=== PATIENT | male | born 1990 | race Caucasian/White ===

== ENCOUNTER → 2020-03-20 10:13 | Outpatient (CLI) | payer BC, SELFPAY | PROVIDERS: PCP Family Medicine; Referring Provider Otolaryngology Otolaryngology/Facial Plastic Surgery; Visit Provider Otolaryngology Otolaryngology/Facial Plastic Surgery | DX: Z11.59 Encounter for screening for other viral diseases (principal) | CPT/HCPCS: 87635; C9803; U0003 ==

== ENCOUNTER 2020-11-16 07:27 | Emergency (ER) | payer OTHER, SELFPAY ==
[2020-11-16 07:29] VITALS: BP 146/81; PULSE 78; RESP 20; TEMP 36.8; O2SAT 94; BMI 39.7
--- NOTE | 2020-11-16 07:38 | EKG12_ITS ---
Test Reason : CP Blood Pressure : / mmHG Vent. Rate : 081 BPM Atrial Rate : 081 BPM P-R Int : 158 ms QRS Dur : 088 ms QT Int : 340 ms P-R-T Axes : 039 014 024 degrees QTc Int : 394 ms Normal sinus rhythm Normal ECG Confirmed by CRISTOBAL POOL, ROSE ([id number]), television news video editor LLOYD MORALES ([id number]) on 11/19/2020 9:39:29 AM Referred By: ED PHYSICIAN Confirmed By:ROSE JAIN MD
--- NOTE | 2020-11-16 07:39 | EDS_ITS ---
HPI History of Present Illness Chief Complaint: Chest Pain Informant: patient Narrative Narrative: Patient is a 30-year-old previously healthy male who presents to the emergency department for left lower chest pain. He states that this started last night. Does not recall any inciting event. Has been progressively getting worse. He currently rates as a 7 out of 10. He states getting in and out of his car seems to make it worse. Whenever the pain gets severe it does seem to take his breath away but he denies shortness of breath at rest. Deep breaths do not seem to aggravate it. He has not tried taking anything for it. He denies any recent illness including any cough, cold, congestion. No fevers or chills. No leg swelling or calf pain. No recent prolonged periods of immobilization. No family history of cardiac disease especially at a young age. He denies any personal history of CAD or thromboembolism. He is a non-smoker. [facility] Home Medications NK 11/16/20 [History Last Taken Unknown] Allergy/AdvReac Type Severity Reaction Status Date / Time No Known Allergies Allergy Verified 11/16/20 07:28 Social History Smoking Status: Never smoker ROS ROS ED Constitutional Constitutional ED: Denies chills or fever(s) Eyes Eyes: Denies change in vision ENT ENT ED: Denies epistaxis or rhinorrhea Cardiovascular Cardiovascular: Reports chest pain; Denies palpitations Respiratory/Chest Respiratory/Chest: Denies cough, dyspnea or dyspnea on exertion Gastrointestinal Gastrointestinal: Denies abdominal pain, nausea or vomiting Musculoskeletal Musculoskeletal: Denies back pain or neck pain Integumentary Denies rash Neurologic Neurologic: Denies dizziness, headache(s) or weakness EXAM Physical Exam Const Vital Signs: 11/16/20 07:29 11/16/20 07:31 11/16/20 08:47 Temperature 98.2 F Temperature Source Oral Pulse Rate 78 71 Respiratory Rate 20 H 16 Respiratory Effort Normal Non-Labored Blood Pressure 146/81 H 128/78 H Blood Pressure Mean 102 Pulse Ox 94 98 Oxygen Delivery Method Room Air Positive well nourished and well developed General Appearance ED: well developed and NAD HEENT Reports normocephalic, head/scalp atraumatic and moist mucous membranes Eyes PERRL and EOMs intact bilaterally Neck supple Chest Wall inspection of chest normal Resp normal respiratory effort and clear to auscultation bilaterally Auscultation: Negative for rales, rhonchi or wheezes Cardio regular rate, regular rhythm and no murmurs GI normal to inspection, nondistended, normoactive bowel sounds and non-tender Palpation: soft; Negative for guarding or rebound tenderness present Extremity normal to inspection General Extremety ED: Negative for edema or tenderness General Extremity: Negative for edema Neuro no sensory deficits noted Sensorium / Orientation: alert Motor Exam: strength 5/5 throughout Psych mental status grossly normal Skin no rashes or lesions noted Heart Score History: Slightly/Non-Suspicious ECG: Normal Age: </= 45 years Risk Factors: 1 or 2 Risk Factors Troponin: </= Normal Limit Score: 1 MDM MDM MDM Narrative Medical decision making narrative: Patient presents to the ED for left-sided chest pain. Upon arrival to the emergency department he is in no acute distress. His initial O2 saturation is 94% but on my examination was at 98% on room air with no increased work of breathing. He does have some reproduction of the chest pain with palpation. EKG, chest x-ray basic lab work being obtained. Is given a dose of Toradol for symptomatic relief. On reexamination patient is feeling better at this time. Lab work not reveal a significant acute abnormality. Troponin is within normal limits. He has a low heart score. I have low concern for ACS, thromboembolism, aortic catastrophe. At this time he does feel comfortable being discharged home. We will have him follow-up with his PCP. Return precautions are reviewed including any worsening pain, shortness of breath. He understands and is agreeable this plan. Lab Data Labs: Laboratory Results - last 24 hr 11/16/20 11/16/20 07:30 07:30 WBC 8.8 RBC 5.09 Hgb 16.1 Hct 47.1 MCV 92.5 MCH 31.6 MCHC 34.2 RDW Std Deviation 41.0 RDW Coeff of Ade 11.9 Plt Count 262 MPV 10.3 Immature Gran % (Auto) 0.500 Neut % (Auto) 62.5 Lymph % (Auto) 23.6 [place] % (Auto) 10.8 H Eos % (Auto) 1.8 Baso % (Auto) 0.8 Absolute Neuts (auto) 5.5 Absolute Lymphs (auto) 2.08 Nucleated RBC % 0 Sodium 136 Potassium 4.7 Chloride 107 Carbon Dioxide 25.0 Anion Gap 4 L BUN 20 H Creatinine 1.02 Estim Creat Clear Calc 98.11 Est GFR (MDRD) Af Amer 109 Est GFR (MDRD) Non-Af 90 BUN/Creatinine Ratio 19.6 Glucose 103 Calcium 9.5 Troponin I High Sens 3.4 Radiography Diagnostic Testing: Radiology Impression Chest X-Ray 11/16/20 07:45 IMPRESSION: Poor inspiration with some bibasilar atelectasis. Electronically Signed: Deven Méndez MD at 8:10 EDT Tel , Service support , Single view portable chest x-ray interpreted by myself. Clear lung gallegos bilaterally. No pleural effusion. Normal cardiac silhouette. Normal mediastinum. EKG Initial EKG: Attestation: I personally reviewed and interpreted this EKG as follows: (Rate of 81 bpm and normal sinus rhythm. Normal intervals. Normal axis. No significant ST elevations or depressions. No T wave abnormalities.) Discharge Plan Triage Chief Complaint: Chest Pain ED Provider: Joni Jacob Dx/Rx/DC Orders Clinical Impression: Chest wall pain Instructions: ED Chest Pain, Noncardiac Prescriptions: No Action NK RF: 0 Stand Alone Forms: ED Work / School Excuse Primary Care Provider: Hi Lanier Referrals: Hi Lanier MD [Primary Care Provider] - 2 Days Disposition Disposition: Home, Self Care Discharge Date/Time: 11/16/20 08:48
--- NOTE | 2020-11-16 07:45 | RAD_ITS ---
STUDY: X-RAY CHEST REASON FOR EXAM: Male, 30 years old. chest pain TECHNIQUE: Single AP portable view of the chest. COMPARISON: None. FINDINGS: Poor inspiration with some bibasilar atelectasis. There is no demonstrated pleural abnormality. Normal size heart. Normal mediastinum and leti. Normal visualized pulmonary arteries. Normal visualized aortic arch and descending thoracic aorta. Normal visualized thoracic spine. Normal visualized ribs, clavicles, and shoulders. There is no demonstrated abnormality of the visualized soft tissue structures of the upper abdomen. RAD/Chest 1 View (Portable) IMPRESSION: Poor inspiration with some bibasilar atelectasis. Electronically Signed: Deven Méndez MD at 8:10 EDT Tel , Service support ,
[2020-11-16 07:46] LABS: Absolute Lymphocyte Count 2.08 X10^3/uL (0.83-4.51); Absolute Neutrophil Count 5.5 X10^3/uL (2.0-7.7); Basophil# 0.07 X10^3/uL; Basophil% 0.8 % (0-1); Eosinophil# 0.16 X10^3/uL; Eosinophils% 1.8 % (0-5); Hematocrit 47.1 % (40-54); Hemoglobin 16.1 g/dL (13.0-16.5); Lymphocyte # 2.08 X10^3/ul (0.83-4.51); Lymphocyte % 23.6 % (19-41); Mean Corp Hgb Conc 34.2 g/dL (32-36); Mean Corpuscular Hgb 31.6 pg (27.0-32.0); Mean Corpuscular Volume 92.5 fL (80-94); Mean Platelet Vol. 10.3 fl (6.2-12.0); Monocyte# 0.95 X10^3/uL; Monocyte% 10.8 % (0-10); NRBC Flagged by Analyzer 0 % (0-5); Neutrophil % 62.5 % (47-70); Platelet Count 262 K/mm3 (150-450); RBC Distribution Width CV 11.9 % (11.6-14.6); Red Blood Count 5.09 M/mm3 (4.6-6.2); White Blood Count 8.8 K/mm3 (4.4-11.0)
[2020-11-16] MEDS: Ketorolac 30 MG/ML Syringe IV (08:00)
[2020-11-16 08:01] LABS: Anion Gap 4 (5-15); BUN 20 mg/dL (7-18); BUN/Creat Ratio 19.6 RATIO (10-20); Calcium,Total 9.5 mg/dL (8.5-10.1); Chloride 107 mmol/L (98-107); Creatinine, Serum 1.02 mg/dL (0.70-1.30); EST Glomerular Filtration Rate 90 mL/min (>60); Est Glom Filt Rate - Afr Amer 109 mL/min (>60); Estimated Creatinine Clearance 98.11 ml/min; Glucose 103 mg/dL (74-106); Potassium 4.7 mmol/L (3.5-5.1); Sodium Level 136 mmol/L (136-145); Troponin-I HS 3.4 pg/mL (3.0-78.5)
[2020-11-16 08:47] VITALS: BP 128/78; PULSE 71; RESP 16; O2SAT 98
== END 2020-11-16 08:48 | disposition home or self-care (01) ==
PROVIDERS: Emergency Provider Emergency Medicine; PCP Family Medicine
DX: R07.89 Other chest pain (principal)
CPT/HCPCS: 71045; 80048; 84484; 85025; 93005; 96374; 99284; A4216

== ENCOUNTER 2022-01-12 12:24 | Emergency (ER) | payer OTHER, SELFPAY ==
[2022-01-12 12:25] VITALS: BP 179/108; PULSE 87; RESP 18; TEMP 36.4; O2SAT 100; BMI 33.3
--- NOTE | 2022-01-12 13:29 | CT_ITS ---
STUDY: CTA CHEST REASON FOR EXAM: Male, 31 years old. Pleuritic Chest pain. 4 day history of left-sided chest pain. RADIATION DOSAGE (If Supplied By Facility): CTDIvol = ( 16.06 ) mGy, DLP = ( 559.03 ) mGycm TECHNIQUE: The examination was performed with the intravenous administration of IV 100mL Isovue-370. Post-processing of the angiographic images was performed, with multiplanar reformation and 3D reconstruction. Individualized dose optimization techniques were used for this CT. COMPARISON: None. FINDINGS: Normal enhancement of the main pulmonary artery and right and left pulmonary arteries. Normal enhancement of the bilateral peripheral pulmonary arteries. There is no demonstrated pulmonary embolism. Normal thoracic aorta and visualized great vessels. There is no demonstrated aortic dissection. Normal heart and pericardium. No coronary artery calcification is seen. Normal mediastinum. Normal hilar regions. Normal visualized trachea and bronchi. The lungs are well expanded. There are mild increased markings at the lung bases slightly more prominent on the left side. This may represent either bibasilar atelectasis and/or early infiltrates. Radiographic follow-up is recommended. Normal pleura. Normal chest wall structures. Normal osseous structures. There is a small sliding hiatal hernia. CT/CTA Chest W/WO Contrast IMPRESSION: No evidence of pulmonary embolism. Mild degree of increased markings at the lung bases slightly more prominent on the left side. This may represent either atelectasis and/or early infiltrates. Radiographic follow-up is recommended. Small hiatal hernia. Electronically Signed: Favio Sibley MD at 14:36 EDT ,
--- NOTE | 2022-01-12 13:30 | EKG12_ITS ---
Test Reason : CP Blood Pressure : / mmHG Vent. Rate : 070 BPM Atrial Rate : 070 BPM P-R Int : 154 ms QRS Dur : 088 ms QT Int : 336 ms P-R-T Axes : 033 009 017 degrees QTc Int : 362 ms Normal sinus rhythm Normal ECG Confirmed by CRISTOBAL POOL, ROSE ([id number]), associate entertainment editor LLOYD MORALES ([id number]) on 01/13/2022 9:16:57 AM Referred By: BRENDAN/AR Confirmed By:ROSE JAIN MD
--- NOTE | 2022-01-12 13:30 | ED.VIS.CHEST ---
HPI History of Present Illness Chief Complaint: Chest Pain Narrative Narrative: Patient presents with pleuritic chest pain on the left that he has had since Wednesday, over the last few days. 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 He has had no blunt force trauma to his chest. He states that when he deep breathes and he gets sharp pain in the left lower portion of his rib cage. No fevers or chills. No cough, no nausea or vomiting. While he denies any leg swelling, he states a few weeks ago he had right calf pain which has essentially resolved. He try to set up appointment with his primary care provider who called him back and suggested that he be evaluated in the ER. [facility] Home Medications NK 11/16/20 [History Last Taken Unknown] Allergy/AdvReac Type Severity Reaction Status Date / Time No Known Allergies Allergy Verified 01/12/22 12:25 Surgical History History of ear surgery Social History Smoking Status: Never smoker ROS ROS ED ROS Narrative Constitutional: No fever, no chills. HEENT: No sore throat. No neck pain. No loss of vision. No rhinorrhea. Cardiovascular: Left-sided sharp, stabbing, pleuritic chest pain. No palpitations. No pedal edema. Respiratory: No cough, no shortness of breath. Abdominal: No abdominal pain. No nausea. No vomiting. Genitourinary: No dysuria. No hematuria. Musculoskeletal: No myalgias currently, right calf pain a few weeks ago. No arthralgias. Neurologic: No headaches. No dizziness. No lightheadedness. Skin: No rash. No change in color. Psychiatric: No depression. No anxiety. EXAM Physical Exam Narrative Exam Narrative: Afebrile. Vital signs noted. HEENT: Normocephalic. Atraumatic. PERRL, EOMI. Neck soft and supple. No point tenderness or step off. Cardiovascular: Regular rate and rhythm. No murmurs, rubs, or gallops appreciated. Respiratory: No tachypnea. Lungs clear to auscultation bilaterally. Gastrointestinal: Abdomen soft, nontender, with normoactive bowel sounds. No rebound or guarding. Neurological: Awake. Alert. Nonfocal, nonlateralizing. Skin: No rash. Normal color. No pallor. Musculoskeletal: No pedal edema. Full range of motion extremities. Const Vital Signs: 01/12/22 12:25 Temperature 97.6 F L Temperature Source Temporal Pulse Rate 87 Respiratory Rate 18 Blood Pressure 179/108 H Blood Pressure Mean 131 Pulse Ox 100 Oxygen Delivery Method Room Air MDM MDM MDM Narrative Medical decision making narrative: Initially, his blood pressure is elevated at 179/108. Pulse ox is 100% on room air. Given his pleuritic chest pain, I will perform CTA of the chest. We will get baseline labs along with EKG and troponin. I also did obtain a D-dimer. EKG interpreted by myself demonstrates normal sinus rhythm at 70 bpm without ectopy or acute ST changes. CBC is grossly normal with a normal white count of 7.0, hemoglobin normal at 15.3, hematocrit 43.6. D-dimer is elevated 0.79. High-sensitivity troponin normal at 4. Electrolyte panel is grossly unremarkable. Preliminary report of his right lower extremity ultrasound is negative for DVT. Chest CTA shows no evidence of pulmonary embolism. There is a mild degree of increased markings in the lung bases more prominent on the left consistent with atelectasis versus early pneumonia. I do not feel that he has an infectious pneumonia as he has normal white count, no fever, no cough. I do not feel antibiotics are indicated. I do feel that he may have pleurisy. He will take [id number] analgesics as needed and follow-up with his primary care provider as scheduled this week. I feel he can be discharged safely home with follow-up. He can return to work today. Return instructions to the emergency department were reviewed. Disposition is discharged home in stable condition. Lab Data Attestation: I reviewed the patient's lab results. Labs: Laboratory Results - last 24 hr 01/12/22 01/12/22 01/12/22 13:40 13:40 13:40 WBC 7.0 RBC 4.84 Hgb 15.3 Hct 43.6 MCV 90.1 MCH 31.6 MCHC 35.1 RDW Std Deviation 40.2 RDW Coeff of Ade 12.1 Plt Count 235 MPV 10.5 Immature Gran % (Auto) 0.300 Neut % (Auto) 66.1 Lymph % (Auto) 21.2 [place] % (Auto) 10.1 H Eos % (Auto) 1.6 Baso % (Auto) 0.7 Absolute Neuts (auto) 4.7 Absolute Lymphs (auto) 1.49 Nucleated RBC % 0 D-Dimer Quant (PE/DVT) 0.79 H* Sodium 141 Potassium 4.0 Chloride 107 Carbon Dioxide 26.0 Anion Gap 8 BUN 13 Creatinine 1.03 Estim Creat Clear Calc 96.26 Est GFR (MDRD) Af Amer 107 Est GFR (MDRD) Non-Af 89 BUN/Creatinine Ratio 12.6 Glucose 96 Calcium 9.5 Troponin I High Sens 4 Radiography Diagnostic Testing: Clinical Impression(s) from Imaging Studies Chest CTA 01/12/22 13:29 IMPRESSION: No evidence of pulmonary embolism. Mild degree of increased markings at the lung bases slightly more prominent on the left side. This may represent either atelectasis and/or early infiltrates. Radiographic follow-up is recommended. Small hiatal hernia. Electronically Signed: Favio Sibley MD at 14:36 EDT , Discharge Plan Triage Chief Complaint: Chest Pain ED Provider: Ankush Castillo Dx/Rx/DC Orders Clinical Impression: Chest pain, Pleurisy, Elevated d-dimer Instructions: ED Chest Pain, Uncertain Cause, ED Pleurisy Prescriptions: No Action NK Stand Alone Forms: ED Work / School Excuse Primary Care Provider: Hi Lanier Referrals: Hi Lanier MD [Primary Care Provider] -
[2022-01-12] MEDS: 0.9% Normal Saline 1,000 ML 1000 ML IV (13:48)
[2022-01-12 13:52] LABS: Absolute Lymphocyte Count 1.49 X10^3/uL (0.83-4.51); Absolute Neutrophil Count 4.7 X10^3/uL (2.0-7.7); Basophil# 0.05 X10^3/uL; Basophil% 0.7 % (0-1); Eosinophil# 0.11 X10^3/uL; Eosinophils% 1.6 % (0-5); Hematocrit 43.6 % (40-54); Hemoglobin 15.3 g/dL (13.0-16.5); Lymphocyte # 1.49 X10^3/ul (0.83-4.51); Lymphocyte % 21.2 % (19-41); Mean Corp Hgb Conc 35.1 g/dL (32-36); Mean Corpuscular Hgb 31.6 pg (27.0-32.0); Mean Corpuscular Volume 90.1 fL (80-94); Mean Platelet Vol. 10.5 fl (6.2-12.0); Monocyte# 0.71 X10^3/uL; Monocyte% 10.1 % (0-10); NRBC Flagged by Analyzer 0 % (0-5); Neutrophil # 4.66 X10^3/uL (2.7-7.7); Neutrophil % 66.1 % (47-70); Platelet Count 235 K/mm3 (150-450); RBC Distribution Width CV 12.1 % (11.6-14.6); RBC Distribution Width SD 40.2 fl (35.1-43.9); Red Blood Count 4.84 M/mm3 (4.6-6.2)
[2022-01-12 14:09] LABS: Anion Gap 8 (5-15); BUN 13 mg/dL (7-18); BUN/Creat Ratio 12.6 RATIO (10-20); Calcium,Total 9.5 mg/dL (8.5-10.1); Chloride 107 mmol/L (98-107); Creatinine, Serum 1.03 mg/dL (0.70-1.30); EST Glomerular Filtration Rate 89 mL/min (>60); Est Glom Filt Rate - Afr Amer 107 mL/min (>60); Estimated Creatinine Clearance 96.26 ml/min; Glucose 96 mg/dL (74-106); Sodium Level 141 mmol/L (136-145); Troponin-I HS (w/2H Reflex) 4 pg/mL (3.0-78.0)
[2022-01-12 14:10] LABS: D-Dimer Quantitative (DVT/PE) 0.79 FEU/ug/m (0.27-0.49)
[2022-01-12 14:15] VITALS: BP 140/99; PULSE 80; RESP 18; O2SAT 97
--- NOTE | 2022-01-12 14:28 | VDLE_ITS ---
Reason For Study: LEG PAIN RIGHT LEFT GSV is normal. CFV is compressible, spontaneous, phasic, CFV is compressible, spontaneous, phasic, competent, and demonstrates normal competent and demonstrates normal augmentation. augmentation. FV is compressible, spontaneous, phasic, competent and demonstrates normal augmentation. POP V is compressible, spontaneous, phasic, competent and demonstrates normal augmentation. T/P Trunk is compressible. PTV is compressible. RT PerV is compressible. Procedure This is a venous duplex using B-mode, color flow and spectral Doppler. Exam performed portable in ED. The exam was diagnostic. A preliminary report was called and/or faxed to Dr. Castillo. VL/Venous Duplex US, Unilateral Interpretation Summary There is no evidence of right lower extremity deep vein thrombosis. Right great saphenous vein appears patent and compressible segmentally. Normal flow patterns left common f emoral vein Ordering Physician: Ankush Castillo Performed By: Atul Eastman RVT
[2022-01-12 15:49] LABS: Reflex Troponin-HS? (from REC) Y
[2022-01-12 16:15] VITALS: BP 145/102; PULSE 78; RESP 16; O2SAT 99
[2022-01-12 16:23] LABS: Troponin-I HS 4 pg/mL (3.0-78.0)
== END 2022-01-12 17:09 | disposition home or self-care (01) ==
PROVIDERS: Emergency Provider Emergency Medicine; PCP Family Medicine; Visit Provider Emergency Medicine
DX: R07.9 Chest pain, unspecified (principal); R09.1 Pleurisy; R79.89 Other specified abnormal findings of blood chemistry
CPT/HCPCS: 71275; 80048; 84484; 85025; 85379; 93005; 93971; 96360; 96361; 99284; J7030; Q9967; A4216

== ENCOUNTER 2022-11-07 20:25 | Emergency (ER) | payer OTHER, SELFPAY ==
[2022-11-07 20:26] VITALS: BP 146/83; PULSE 124; RESP 16; TEMP 36.6; O2SAT 95; BMI 34.4
--- NOTE | 2022-11-07 20:43 | EX.ED.DYSGE1 ---
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 He has abrasions and swelling to the right side of his head and pain in the left side of his neck. Denies LOC or blood thinners. He has a headache and states his right contact was knocked out somewhat blurry but he has no acute visual changes. No nausea or vomiting. He has some superficial scrapes to his upper extremities. Denies other injuries. He thinks his tetanus is up-to-date. PFSH <SEBLE Elizabeth Last Filed: 11/07/22 21:31> [facility] Home Medications NK 11/16/20 [History Last Taken Unknown] Allergy/AdvReac Type Severity Reaction Status Date / Time No Known Allergies Allergy Verified 11/07/22 20:26 Surgical History History of ear surgery Social History Smoking Status: Never smoker ROS <SEBLE Elizabeth Last Filed: 11/07/22 21:31> ROS ED ROS Narrative GI: Negative for nausea, vomiting. Neuro: Positive for headache, negative for motor/sensory dysfunction. Skin: Positive for wounds. Musc: Negative for joint pain, swelling. Heme: Negative for easy bruising, bleeding, lymphadenopathy. EXAM <SEBLE Elizabeth Last Filed: 11/07/22 21:31> Physical Exam Narrative Exam Narrative: CONST: Patient sitting in no acute distress. EYES: Normal inspection. ENT: Edema and tenderness of right superior orbital rim with no step-offs, no raccoon eyes or florentino sign, no nasal septal hematoma, no hemotympanum, no CSF otorrhea or rhinorrhea. NECK: Normal inspection. Left paraspinal tenderness, no midline tenderness or step-offs. RESP: No respiratory distress, CTAB. CVS: Regular rate and rhythm, no murmur, no gallop. SKIN: Superficial scratches on right upper arms. Small abrasion in the right eyebrow and abrasion in right scalp above the ear. EXTREMITIES: Normal appearance, full ROM with no tenderness, 2+ radial pulses. NEURO: Oriented x4. Normal finger-nose bilaterally, normal speech, normal gait. PSYCH: Normal affect. Const Vital Signs: 11/07/22 20:26 11/07/22 20:26 Temperature 97.8 F Temperature Source Temporal Pulse Rate 124 H Respiratory Rate 16 Respiratory Effort Normal Blood Pressure 146/83 H Blood Pressure Mean 104 Pulse Ox 95 <Dr. 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 No LOC or blood thinners. He is awake alert with GCS of 15. There is a hematoma and abrasion over the right eyebrow and abrasion over the right scalp. No signs of basilar skull fracture. He has no midline cervical tenderness, tall left-sided consistent with musculoskeletal pain. According to [place] CT head rule and Nexus criteria there is no indication for CT scans of the brain or C-spine. He also has superficial abrasions of the right upper extremity with no bony tenderness. Neurovascularly intact. Wounds were cleansed and he believes tetanus is up-to-date. I discussed head injury return precautions and he was discharged in stable condition. Differential: Scalp hematoma, facial bone fracture, intracranial hemorrhage <Dr. 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 No LOC or blood thinners. He is awake alert with GCS of 15. There is a hematoma and abrasion over the right eyebrow and abrasion over the right scalp. No signs of basilar skull fracture. He has no midline cervical tenderness, tall left-sided consistent with musculoskeletal pain. According to [place] CT head rule and Nexus criteria there is no indication for CT scans of the brain or C-spine. He also has superficial abrasions of the right upper extremity with no bony tenderness. Neurovascularly intact. Wounds were cleansed and he believes tetanus is up-to-date. I discussed head injury return precautions and he was discharged in stable condition. Differential: Scalp hematoma, facial bone fracture, intracranial hemorrhage I have personally performed a face to face assessment of the patient and have reviewed the VIKI Note. I performed a substantive portion of the visit including all aspects of the following. 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 No LOC. No vomiting. He is not on any blood thinners. No other complaints. Exam is [well-appearing 32-year-old male. Vital signs stable afebrile. HEENT exam pupils round reactive light. Dentition and jaw intact. Abrasion right lateral scalp. No laceration. Contusion right forehead. Pupils round react light. Neck nontender. Trachea midline. Back nontender. Spine nontender. Lungs clear. Chest wall nontender. Heart regular rhythm. Abdomen soft. Moving all 4 extremities. 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 Dorsi plantarflexion intact. Neurologic exam normal. GCS of 15. Awake alert. Knows day month and year.] Medical Decision Making [Worker's Comp. 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 He does not need a CAT scan of his head or neck. Treated as a closed head injury.] Other additions or changes: [None] Discharge Plan Triage Chief Complaint: Head Injury ED Midlevel Provider: Caterina Denney ED Provider: Sae Dewitt Dx/Rx/DC Orders Clinical Impression: Abrasion of scalp, Traumatic hematoma of right eyebrow, Abrasion of right upper extremity, Encounter related to worker's compensation claim Instructions: ED Abrasion, ED Head Injury (Adult) Prescriptions: No Action NK Primary Care Provider: Hi Lanier Referrals: Hi Lanier MD [Primary Care Provider] - Activity Restrictions/Additional Instructions: Keep abrasions clean with soap and water. You can ice the hematoma and take Tylenol Motrin as needed for headache. If you develop severe headache or vomiting please come back to the emergency room. Disposition Disposition: Home, Self Care
== END 2022-11-07 21:38 | disposition home or self-care (01) ==
PROVIDERS: Emergency Provider Emergency Medicine; PCP Family Medicine; Visit Provider Emergency Medicine
DX: S00.83XA Contusion of other part of head, initial encounter (principal); S00.01XA Abrasion of scalp, initial encounter; Y99.0 Civilian activity done for income or pay; S00.211A Abrasion of right eyelid and periocular area, initial encounter; W01.198A Fall on same level from slipping, tripping and stumbling with subsequent striking against other object, initial encounter; S40.811A Abrasion of right upper arm, initial encounter
CPT/HCPCS: 99282; J7030